=== PATIENT | female | born 1970 | race Two or more races ===

== ENCOUNTER 2020-04-27 10:05 | Inpatient (IN) | payer OTHER ==
--- NOTE | 2020-04-27 10:36 | BHS.RME ---
Substance Use & Tx History - Substance Use History Alcohol Substance amount: 6 32 oz cans Frequency of use: Daily Substance route: Oral Date of Last Use: 04/26/20 Cocaine-Crack Substance amount: 2 grams Frequency of use: Daily Substance route: Smoking Date of Last Use: 04/26/20 - Last Treatment Date of last treatment: 1st time in detox, rehab last year at [facility] Where was last treatment: Rehab Physical/Psych/Mental Status - Behavior General Behavior: Increased activity (restlessness, agitation) Eye Contact: Normal Other Behaviors: Mannerisms - Cooperativeness Cooperativeness: Cooperative, Friendly - Thinking Thought Processes: Tight Thought content: Future oriented - Physical Health Problems Is patient presently having any pain?: No Does patient presently have any injuries (include location): No Does patient currently have a fever: No CIWA Nausea/Vomitin Muscle Tremors: 2 Anxiety: 2 Agitation: 2 Paroxysmal Sweats: 2 Orientation: 0-Oriented Tacttile Disturbances: 1-Very Mild Itch/Numbness Auditory Disturbances: 0-None Visual Disturbances: 0-None Headache: 2-Mild CIWA-Ar Total Score: 13
[2020-04-27 11:09] VITALS: BMI 26.4
--- NOTE | 2020-04-27 11:30 | HP ---
CIWA Score Nausea/Vomitin Muscle Tremors: 2 Anxiety: 2 Agitation: 2 Paroxysmal Sweats: 2 Orientation: 0-Oriented Tacttile Disturbances: 1-Very Mild Itch/Numbness Auditory Disturbances: 0-None Visual Disturbances: 0-None Headache: 2-Mild CIWA-Ar Total Score: 13 - Admission Criteria OASAS Guidelines: Admission for Medically Managed Detox: Requires at least one of the followin. CIWA greater than 12 2. Seizures within the past 24 hours 3. Delirium tremens within the past 24 hours 4. Hallucinations within the past 24 hours 5. Acute intervention needed for co occurring medical disorder 6. Acute intervention needed for co occurring psychiatric disorder 7. Severe withdrawal that cannot be handled at a lower level of care (continued vomiting, continued diarrhea, abnormal vital signs) requiring intravenous medication and/or fluids 8. Patient presents the following: CIWA greater than 12 Admission Criteria Met: Admission criteria met Admitting History and Physical - Past Medical History ...LMP: 04/07/20 ...: No - Smoking History Smoking history: Former smoker Have you smoked in the past 12 months: No Admission ROS [facility] - [facility] Chief Complaint: I am here to get help Allergies/Adverse Reactions: Allergies Allergy/AdvReac Type Severity Reaction Status Date / Time No Known Allergies Allergy Verified 04/27/20 10:50 History of Present Illness: Patient is a 49 years old woman, first time in detox requesting treatment. She reports rehab at [facility] for rehab sometime last year. She denies seizures or blackouts. Exam Limitations: No Limitations - Ebola screening Have you traveled outside of the country in the last 21 days: No Have you had contact with anyone from an Ebola affected area: No Have you been sick,other than usual withdrawal symptoms: No Do you have a fever: No - Review of Systems Constitutional: Chills, Loss of Appetite, Changes in sleep, Weight Stable EENT: reports: No Symptoms Reported Respiratory: reports: No Symptoms reported Cardiac: reports: No Symptoms Reported GI: reports: Constipated, Nausea, Poor Appetite, Poor Fluid Intake, Abdominal cramping : reports: No Symptoms Reported Musculoskeletal: reports: Back Pain, Joint Pain, Muscle Pain, Muscle Weakness Integumentary: reports: Sweating Neuro: reports: Headache, Tremors Endocrine: reports: No Symptoms Reported Hematology: reports: No Symptoms Reported Psychiatric: reports: Anxious, Depressed Other Systems: Reviewed and Negative Patient History - Patient Medical History Hx Asthma: Yes Hx Chronic Obstructive Pulmonary Disease (COPD): No Hx Cancer: No Hx Cardiac Disorders: No Hx Congestive Heart Failure: No Hx Hypertension: No Hx Hypercholesterolemia: No Hx Pacemaker: No HX Cerebrovascular Accident: No Hx Seizures: No Hx Dementia: No Hx Diabetes: No Hx Gastrointestinal Disorders: No Hx Liver Disease: No Hx Genitourinary Disorders: No Hx Sexually Transmitted Disorders: Yes (SPHILLIS, GONORHEA, CHLAMYDIA about 5 years ago) Hx Renal Disease (ESRD): No Hx Thyroid Disease: No Hx Human Immunodeficiency Virus (HIV): No Hx Hepatitis C: No Hx Depression: Yes Hx Suicide Attempt: No Hx Schizophrenia: No Other Medical History: POLINA - Patient Surgical History Past Surgical History: Yes Hx Neurologic Surgery: No Hx Cataract Extraction: No Hx Cardiac Surgery: No Hx Lung Surgery: No Hx Breast Surgery: No Hx Breast Biopsy: No Hx Abdominal Surgery: No Hx Appendectomy: No Hx Cholecystectomy: No Hx Genitourinary Surgery: No Hx Section: Yes (20 yrs ago) Hx Orthopedic Surgery: Yes (left knee meniscus repair) Anesthesia Reaction: No - PPD History Previous Implant?: Yes Documented Results: Negative w/proof Implanted On Prior R Admission?: No PPD to be Administered?: Yes - Reproductive History Patient is a Female of Child Bearing Age (11 -55 yrs old): Yes Last Menstrual Period: 04/07/20 Patient : No - Smoking Cessation Smoking history: Former smoker Have you smoked in the past 12 months: No Hx Chewing Tobacco Use: No Initiated information on smoking cessation: No - Substance & Tx. History Hx Alcohol Use: Yes - Substances abused Alcohol Other (specify): beer Substance route: Oral Frequency: Daily Amount used: 6 32 oz cans Age of first use: 37 Date of last use: 04/26/20 Cocaine Substance route: Smoking Frequency: Daily Amount used: 2 grams Age of first use: 43 Date of last use: 04/26/20 Admission Physical Exam BHS - Vital Signs Vital Signs: Vital Signs - 24 hr 04/27/20 11:08 Temperature 97.7 F Pulse Rate 81 Respiratory 18 Rate Blood Pressure 111/76 - Physical General Appearance: Yes: No Apparent Distress, Sweating HEENTM: Yes: Hearing grossly Normal, Normocephalic, Normal Voice, Other (edentulous) Respiratory: Yes: Chest Non-Tender, Lungs Clear, Normal Breath Sounds, No Respiratory Distress, No Accessory Muscle Use Neck: Yes: No masses,lesions,Nodules, Supple Breast: Yes: Breast Exam Deferred Cardiology: Yes: Regular Rhythm, Regular Rate, S1, S2 Abdominal: Yes: Normal Bowel Sounds, Non Tender, Soft Genitourinary: Yes: Within Normal Limits Back: Yes: Normal Inspection Extremities: Yes: Normal Capillary Refill, Normal Range of Motion, Non-Tender, Tremors 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: 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 NML intact, Fully Oriented, Alert, Normal Mood/Affect, Normal Response Integumentary: Yes: Normal Color, Warm, Moist Lymphatic: Yes: Within Normal Limits - Diagnostic (1) Alcohol dependence with uncomplicated withdrawal Current Visit: Yes Status: Acute (2) Cocaine abuse Current Visit: Yes Status: Acute Cleared for Admission S - Detox or Rehab [facility] Level of Care: Medically Managed Detox Regimen/Protocol: Librium Claeared for Rehab Admission: No Breathalyzer - Breathalyzer Breathalyzer: 0 Urine Drug Screen - Test Device Lot number: [id number] Expiration date: 10/31/21 - Control Is test valid?: Yes - Results Drug screen NEGATIVE: No Urine drug screen results: CHRISTOPHER-Cocaine Inpatient Rehab Admission - Rehab Decision to Admit Inpatient rehab admission?: No
[2020-04-27] MEDS ORDERED: MAGNESIUM CITRATE 300 ML BOTTLE PO PRN (11:38)
[2020-04-27] MEDS ORDERED: hydrOXYzine PAMOATE 25 MG CAPSULE (FP) PO PRN (11:38)
[2020-04-27] MEDS ORDERED: chlordiazePOXIDE HCL 25 MG CAPSULE PO PRN (11:38)
[2020-04-27] MEDS ORDERED: BISMUTH SUBSALICYLATE 524 MG/30 ML UD PO PRN (11:38)
[2020-04-27] MEDS ORDERED: MENTHOL/PHENOL 1 EACH UD MM PRN (11:38)
[2020-04-27] MEDS ORDERED: MAGNESIUM HYDROX 2400MG/30ML ORAL SUSPENSION 30 ML CUP PO PRN (11:38)
[2020-04-27] MEDS ORDERED: MAG HYDROX/AL HYDROX/SIMETH 30 ML UNIT-DOSE CUP PO PRN (11:38)
[2020-04-27] MEDS ORDERED: ACETAMINOPHEN 325 MG TABLET (FP) PO PRN ×2 (11:38)
[2020-04-27] MEDS ORDERED: ONDANSETRON *ODT* 4 MG TABLET SL PRN (11:38)
[2020-04-27] MEDS ORDERED: chlordiazePOXIDE HCL 25 MG CAPSULE PO ONE (12:00)
[2020-04-27] MEDS: chlordiazePOXIDE HCL 25 MG CAPSULE PO SCH ×2 (17:38→22:40)
[2020-04-27] MEDS ORDERED: MELATONIN 5 MG TABLETS PO SCH (22:00)
[2020-04-27] MEDS: THIAMINE HCL 100 MG TABLET (FP) PO SCH (22:39)
[2020-04-27] MEDS: METHOCARBAMOL 500 MG TABLET PO PRN (22:41)
[2020-04-28] MEDS: chlordiazePOXIDE HCL 25 MG CAPSULE PO SCH ×2 (06:08→10:47)
[2020-04-28] MEDS ORDERED: chlordiazePOXIDE HCL 25 MG CAPSULE ONE (09:41)
[2020-04-28 10:47] LABS: HEMATOCRIT 32.7 % (32.4-45.2); HEMOGLOBIN 10.1 GM/dL (10.7-15.3); MCH 24.3 pg (25.7-33.7); MCHC 30.9 g/dl (32.0-36.0); MEAN CELL VOLUME 78.5 fl (80-96); MEAN PLT VOLUME 8.4 fl (7.5-11.1); PLATELET COUNT 407 K/MM3 (134-434); RBC 4.16 M/mm3 (3.60-5.2); RDW 18.2 % (11.6-15.6); WHITE BLOOD COUNT 9.7 K/mm3 (4.0-10.0)
[2020-04-28] MEDS: METHOCARBAMOL 500 MG TABLET PO PRN (10:50)
[2020-04-28 11:06] LABS: ALBUMIN 3.1 g/dl (3.4-5.0); BILIRUBIN,TOTAL 0.2 mg/dL (0.2-1); BLOOD UREA NITROGEN 12.5 mg/dL (7-18); CALCIUM 8.5 mg/dL (8.5-10.1); CREATININE 0.8 mg/dL (0.55-1.3); POTASSIUM 3.8 mmol/L (3.5-5.1); TOT PROT 6.1 g/dl (6.4-8.2)
[2020-04-28] MEDS: PRENATAL VITAMINS W/ FOLIC ACID TABLET (FP) PO SCH (11:58)
--- NOTE | 2020-04-28 12:03 | PN ---
S CIWA - CIWA Score Nausea/Vomitin-Mild Nausea/No Vomiting Muscle Tremors: 2 Anxiety: 4-Mod. Anxious/Guarded Agitation: 2 Paroxysmal Sweats: No Perspiration Orientation: 0-Oriented Tacttile Disturbances: 0-None Auditory Disturbances: 0-None Visual Disturbances: 0-None Headache: 1-Very Mild CIWA-Ar Total Score: 10 BHS Progress Note (SOAP) Subjective: 49 years old female was admitted on 04/27/20 for alcohol withdrawal sx management treating with librium detox regiment had verbal altercation with a male peer treatment team met with ms yang to discuss behavior in unit and self control ms millan states that she has long history of anxiety and is taking medication prescribed by the psychiatrist script writer overhead page psychiatrist on duty who states that ms millan will be seen today recommend valium as alcohol withdrawal management ms millan agrees that "that is what about" "I am so anxious" emotional assurance given that valium and psychiatrist on board to go through the alcohol detox Objective: 04/28/20 12:03 Vital Signs - 24 hr 04/27/20 04/27/20 04/27/20 12:10 16:45 21:05 Temperature 97.3 F L 98.2 F 97.3 F L Pulse Rate 80 72 83 Respiratory 18 16 18 Rate Blood Pressure 133/68 101/63 105/60 O2 Sat by Pulse 100 Oximetry (%) 04/28/20 04/28/20 06:35 09:00 Temperature 97.3 F L Pulse Rate 72 97 H Respiratory 16 18 Rate Blood Pressure 98/62 107/62 O2 Sat by Pulse 100 Oximetry (%) Laboratory Tests 04/28/20 04/28/20 04/28/20 07:50 07:50 07:50 WBC 9.7 RBC 4.16 Hgb 10.1 L Hct 32.7 MCV 78.5 L MCH 24.3 L MCHC 30.9 L RDW 18.2 H Plt Count 407 MPV 8.4 Sodium 143 Potassium 3.8 Chloride 109 H Carbon Dioxide 28 Anion Gap 6 L BUN 12.5 Creatinine 0.8 Est GFR (CKD-EPI)AfAm 100.33 Est GFR (CKD-EPI)NonAf 86.57 Random Glucose 102 Calcium 8.5 Total Bilirubin 0.2 AST 15 ALT 25 Alkaline Phosphatase 82 Total Protein 6.1 L Albumin 3.1 L Syphilis Serology Non-reactive 04/28/20 12:03 covid pending Assessment: 04/28/20 12:23 alcohol withdrawal anxiety Plan: valium regiment vistaril 50mg po q6h
[2020-04-28] MEDS ORDERED: hydrOXYzine PAMOATE 25 MG CAPSULE (FP) PO SCH (12:15)
[2020-04-28] MEDS ORDERED: diazePAM 5 MG TABLET PO PRN (12:19)
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
[2020-04-28] MEDS ORDERED: hydrOXYzine PAMOATE 50 MG CAPSULE (FP) PO PRN (13:38)
[2020-04-28] MEDS: diazePAM 5 MG TABLET PO SCH ×2 (18:22→22:35)
[2020-04-28] MEDS: IBUPROFEN 400 MG TABLET (FP) PO PRN (19:35)
--- NOTE | 2020-04-28 21:41 | EKG ---
Test Reason : Blood Pressure : / mmHG Vent. Rate : 072 BPM Atrial Rate : 072 BPM P-R Int : 150 ms QRS Dur : 072 ms QT Int : 414 ms P-R-T Axes : 069 043 055 degrees QTc Int : 453 ms NORMAL SINUS RHYTHM NORMAL ECG NO PREVIOUS ECGS AVAILABLE Confirmed by ABRAHAM EDUARDO MD ([id number]) on 04/28/2020 9:41:22 PM Referred By: Confirmed By:ABRAHAM EDUARDO MD
[2020-04-28] MEDS ORDERED: SUVOREXANT 5 MG TABLET PO ONE (22:00)
[2020-04-28] MEDS: SUVOREXANT 10 MG TABLET PO PRN (22:35)
[2020-04-28] MEDS: THIAMINE HCL 100 MG TABLET (FP) PO SCH (22:35)
[2020-04-29] MEDS ORDERED: chlordiazePOXIDE HCL 10 MG CAPSULE PO PRN
[2020-04-29] MEDS ORDERED: chlordiazePOXIDE HCL 25 MG CAPSULE PO SCH (05:00)
[2020-04-29] MEDS: diazePAM 5 MG TABLET PO SCH ×3 (05:43→19:14)
[2020-04-29] MEDS: IBUPROFEN 400 MG TABLET (FP) PO PRN (06:13)
[2020-04-29] MEDS: PRENATAL VITAMINS W/ FOLIC ACID TABLET (FP) PO SCH (10:19)
[2020-04-29] MEDS: METHOCARBAMOL 500 MG TABLET PO PRN (10:22)
[2020-04-29] MEDS ORDERED: SERTRALINE HCL 50 MG TABLET (FP) PO SCH (13:45)
--- NOTE | 2020-04-29 14:03 | PN ---
[facility] Progress Note Note: Psychiatry Attending's note (follow-up): Called to see this patient to discuss medications. Chart reviewed. Dr Su's note of 04/28/20 : read. Met with the patient. Ms Stephens is a good historian. Concerned about sertraline. " I got discharged from [facility] on that medication." Patient states that she spent 7 days at [facility] (psychiatry). From 03/14 to 03/21/20. Discharged with zoloft 100 mg po daily. She authorized MD to contact Ms Cortes, her trimming caser. At [facility] ([phone]). Verbal consent. Done. Vehicle Maintenance Technician spoke to Ms Cortes : medication + history confirmed. Zoloft resumed. Informed consent granted to . Observation.
--- NOTE | 2020-04-29 14:23 | PN ---
S CIWA - CIWA Score Nausea/Vomitin-Mild Nausea/No Vomiting Muscle Tremors: 1-None Visible, but [place] Anxiety: 1-Mildly Anxious Agitation: 0-Normal Activity Paroxysmal Sweats: No Perspiration Orientation: 0-Oriented Tacttile Disturbances: 0-None Auditory Disturbances: 0-None Visual Disturbances: 2-Mild Sensitivity Headache: 2-Mild CIWA-Ar Total Score: 7 BHS Progress Note (SOAP) Subjective: 49 years old female was admitted on 04/27/20 for alcohol withdrawal sx management ms yang states that valium does not do shit to her anxiety and wants to call her private psychiatrist for a list of medication encourage ms yang to discuss psychotropic medication with the psychiatrist on board for continuity of care ms millan is doing well on the unit social with peers on hallway and day room encourage ms millan to discuss aftercare with staff Objective: 04/29/20 14:40 Vital Signs - 24 hr 04/28/20 04/28/20 04/29/20 17:35 21:08 06:45 Temperature 97.8 F 97.5 F L 98.2 F Pulse Rate 115 H 92 H 81 Respiratory 18 16 16 Rate Blood Pressure 113/61 98/61 106/64 O2 Sat by Pulse 100 96 99 Oximetry (%) 04/29/20 04/29/20 09:00 12:48 Temperature 97.1 F L 98.0 F Pulse Rate 80 77 Respiratory 16 16 Rate Blood Pressure 105/70 105/70 O2 Sat by Pulse 100 Oximetry (%) Laboratory Tests 04/27/20 04/28/20 04/28/20 11:19 07:50 07:50 WBC RBC Hgb Hct MCV MCH MCHC RDW Plt Count MPV Sodium Potassium Chloride Carbon Dioxide Anion Gap BUN Creatinine Est GFR (CKD-EPI)AfAm Est GFR (CKD-EPI)NonAf Random Glucose Calcium Total Bilirubin AST ALT Alkaline Phosphatase Total Protein Albumin Syphilis Serology Non-reactive COVID-19 (DOREEN) Not detected HIV Ag/Ab Combo Qual Negative 04/28/20 04/28/20 07:50 07:50 WBC 9.7 RBC 4.16 Hgb 10.1 L Hct 32.7 MCV 78.5 L MCH 24.3 L MCHC 30.9 L RDW 18.2 H Plt Count 407 MPV 8.4 Sodium 143 Potassium 3.8 Chloride 109 H Carbon Dioxide 28 Anion Gap 6 L BUN 12.5 Creatinine 0.8 Est GFR (CKD-EPI)AfAm 100.33 Est GFR (CKD-EPI)NonAf 86.57 Random Glucose 102 Calcium 8.5 Total Bilirubin 0.2 AST 15 ALT 25 Alkaline Phosphatase 82 Total Protein 6.1 L Albumin 3.1 L Syphilis Serology COVID-19 (DOREEN) HIV Ag/Ab Combo Qual lab noted Assessment: 04/29/20 14:41 alcohol withdrawal Plan: valium regiment
[2020-04-29] MEDS: SERTRALINE HCL 50 MG TABLET (FP) PO SCH (15:44)
[2020-04-29] MEDS ORDERED: chlordiazePOXIDE HCL 25 MG CAPSULE PO ONE (19:19)
[2020-04-29] MEDS: THIAMINE HCL 100 MG TABLET (FP) PO SCH (23:15)
[2020-04-29] MEDS: SUVOREXANT 10 MG TABLET PO PRN (23:17)
[2020-04-29] MEDS: chlordiazePOXIDE HCL 25 MG CAPSULE PO SCH (23:24)
[2020-04-30] MEDS ORDERED: chlordiazePOXIDE HCL 10 MG CAPSULE PO PRN
[2020-04-30] MEDS ORDERED: diazePAM 5 MG TABLET PO PRN (00:01)
[2020-04-30] MEDS ORDERED: chlordiazePOXIDE HCL 10 MG CAPSULE PO SCH (05:00)
[2020-04-30] MEDS ORDERED: diazePAM 5 MG TABLET PO SCH (05:00)
[2020-04-30] MEDS: chlordiazePOXIDE HCL 25 MG CAPSULE PO SCH ×2 (06:46→10:30)
--- NOTE | 2020-04-30 08:55 | DS ---
[facility] Detox Discharge Summary Admission Date: 04/27/20 Discharge Date: 04/30/20 - History Present History: Alcohol Dependence Additional Comments: 49 years old female was admitted on 04/27/20 for alcohol withdrawal sx management treated with valium detox regiment ms yang insists to leave the detox today instead of estimated discharge date of 05/02/20 ms yang states that she is feeling better and wants to follow up with her lead case manager mr yang is alert oriented x 3 speech clearly coherently ambulating steady gait General Appearance: Yes: No Apparent Distress, no Sweating HEENTM: Yes: Hearing grossly Normal, Normocephalic, Normal Voice, Other (edentulous) Respiratory: Yes: Chest Non-Tender, Lungs Clear, Normal Breath Sounds, No Respiratory Distress, No Accessory Muscle Use Neck: Yes: No masses,lesions,Nodules, Supple Breast: Yes: Breast Exam Deferred Cardiology: Yes: Regular Rhythm, Regular Rate, S1, S2 Abdominal: Yes: Normal Bowel Sounds, Non Tender, Soft Genitourinary: Yes: Within Normal Limits Back: Yes: Normal Inspection Extremities: Yes: Normal Capillary Refill, Normal Range of Motion, Non-Tender, mild Tremors 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: 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 intact, Fully Oriented, Alert, Normal Mood/Affect, Normal Response Integumentary: Yes: Normal Color, Warm, Lymphatic: Yes: Within Normal Limits Pertinent Past History: time for discharge 48 minutes treatment team met with ms millan to discuss the benefit of valium regiment completion - Physical Exam Results Vital Signs: Vital Signs Temperature 97.9 F 04/30/20 06:46 Pulse Rate 85 04/30/20 06:46 Respiratory Rate 18 04/30/20 06:46 Blood Pressure 103/69 04/30/20 06:46 O2 Sat by Pulse Oximetry (%) 99 04/30/20 06:46 Pertinent Admission Physical Exam Findings: alcohol withdrawal Vital Signs - 24 hr 04/29/20 04/29/20 04/30/20 16:54 20:43 06:46 Temperature 96.9 F L 97.1 F L 97.9 F Pulse Rate 76 78 85 Respiratory 18 18 18 Rate Blood Pressure 104/68 119/68 103/69 O2 Sat by Pulse 100 99 Oximetry (%) 04/30/20 08:40 Temperature 97.5 F L Pulse Rate 92 H Respiratory 16 Rate Blood Pressure 123/86 O2 Sat by Pulse 99 Oximetry (%) Laboratory Tests 04/27/20 04/28/20 04/28/20 11:19 07:50 07:50 WBC RBC Hgb Hct MCV MCH MCHC RDW Plt Count MPV Sodium Potassium Chloride Carbon Dioxide Anion Gap BUN Creatinine Est GFR (CKD-EPI)AfAm Est GFR (CKD-EPI)NonAf Random Glucose Calcium Total Bilirubin AST ALT Alkaline Phosphatase Total Protein Albumin Syphilis Serology Non-reactive COVID-19 (DOREEN) Not detected HIV Ag/Ab Combo Qual Negative 04/28/20 04/28/20 07:50 07:50 WBC 9.7 RBC 4.16 Hgb 10.1 L Hct 32.7 MCV 78.5 L MCH 24.3 L MCHC 30.9 L RDW 18.2 H Plt Count 407 MPV 8.4 Sodium 143 Potassium 3.8 Chloride 109 H Carbon Dioxide 28 Anion Gap 6 L BUN 12.5 Creatinine 0.8 Est GFR (CKD-EPI)AfAm 100.33 Est GFR (CKD-EPI)NonAf 86.57 Random Glucose 102 Calcium 8.5 Total Bilirubin 0.2 AST 15 ALT 25 Alkaline Phosphatase 82 Total Protein 6.1 L Albumin 3.1 L Syphilis Serology COVID-19 (DOREEN) HIV Ag/Ab Combo Qual lab noted - Treatment Hospital Course: Detox Protocol Followed, Detoxed Safely, Responded well, Discharged Condition Good, Rehab Referral Accepted Patient has Accepted a Rehab Referral to: return to lead case manager for follow up care - Medication Discharge Medications: Ambulatory Orders Zolpidem Tartrate [Ambien] 10 mg PO HS 04/27/20 - Diagnosis (1) Alcohol dependence with uncomplicated withdrawal Status: Acute (2) Substance induced mood disorder Status: Suspected - AMA Did Patient Leave Against Medical Advice: No CIWA Score - CIWA Score Nausea/Vomitin-No Nausea/No Vomiting Muscle Tremors: 1-None Visible, but [place] Anxiety: 0-No Anxiety, at Ease Agitation: 0-Normal Activity Paroxysmal Sweats: No Perspiration Orientation: 0-Oriented Tacttile Disturbances: 0-None Auditory Disturbances: 0-None Visual Disturbances: 1-Very Mild Sensitivity Headache: 1-Very Mild CIWA-Ar Total Score: 3
[2020-04-30 09:25] VITALS: BP 123/86; PULSE 92; TEMP 97.5
[2020-04-30] MEDS: SERTRALINE HCL 50 MG TABLET (FP) PO SCH (10:30)
[2020-04-30] MEDS: PRENATAL VITAMINS W/ FOLIC ACID TABLET (FP) PO SCH (10:30)
[2020-05-01] MEDS ORDERED: diazePAM 5 MG TABLET PO SCH (05:00)
[2020-05-01] MEDS ORDERED: chlordiazePOXIDE HCL 10 MG CAPSULE PO SCH ×2 (05:00)
[2020-05-02] MEDS ORDERED: chlordiazePOXIDE HCL 10 MG CAPSULE PO SCH (05:00)
[2020-05-02] MEDS ORDERED: diazePAM 5 MG TABLET PO ONE (05:00)
[2020-05-02] MEDS ORDERED: chlordiazePOXIDE HCL 10 MG CAPSULE PO ONE (05:00)
[2020-05-03] MEDS ORDERED: chlordiazePOXIDE HCL 10 MG CAPSULE PO ONE (05:00)
== END 2020-04-30 09:33 | disposition home or self-care (01) | DRG 774 ==
LOC: YASAS 10:05 → Y3N 11:15
PROVIDERS: ADMIT Allergy & Immunology; ATTEND Allergy & Immunology
PROC: HZ2ZZZZ Detoxification Services for Substance Abuse Treatment (ICD-10-PCS; principal; 2020-04-27)
DX: F10.230 Alcohol dependence with withdrawal, uncomplicated (principal); F14.20 Cocaine dependence, uncomplicated; F17.211 Nicotine dependence, cigarettes, in remission; F19.282 Other psychoactive substance dependence with psychoactive substance-induced sleep disorder; F19.24 Other psychoactive substance dependence with psychoactive substance-induced mood disorder; F41.1 Generalized anxiety disorder; F32.9 Major depressive disorder, single episode, unspecified; J45.909 Unspecified asthma, uncomplicated; Z86.19 Personal history of other infectious and parasitic diseases; Z91.410 Personal history of adult physical and sexual abuse; Z56.0 Unemployment, unspecified; Z59.0 Homelessness
CPT/HCPCS: 36415; 80053; 85027; 86780; 87389; 93005; 93010; U0003